=== PATIENT | male | born 1960 | race Caucasian/White ===

== ENCOUNTER 2016-10-29 09:26 | Inpatient (IN) | payer MEDICAID ==
[~2016-10-29] VITALS: Ht 188 cm; Wt 120.3 kg
[~2016-10-29 09:26] MED LIST: ADULT LOW DOSE81 MG; ADVAIR 2501 DISK W/D; ADVAIR 25028 BLISTE1 INH; ALBUTEROL 0.083% NEB; ALPRAZOLAM1 M3 PO; AMBIEN10 MG; AMITRIPTYLINE H25 MG; AMITRIPTYLINE H75 MG; AMLODIPINE BESYL5 MG PO; AMOXICILLIN875 MG; AUGMENTIN 875-11 TAB; BACLOFEN10 M1 PO; BENADRYL25 M3 PO; CARDIZEM CD240 MG; CELEXA40 MG; CLARITIN10 M6 PO; CLEOCIN HCL300 M1 PO; COMBIVENT INH14.7 GM; COUMADIN4 M1 PO; COZAAR50 M1 PO; DEPAKOTE ER500 M1 PO; DETROL LA4 MG; DILTIAZEM; DIOVAN160 M; DURAGESIC1 EA10 TD; ETODOLAC500 MG; FLOMAX0.4 M1 PO; FLOMAX0.4 MG; GLUCAGON EMERGEN1 MG IM; GLUCOSE4 GM PO; GUAIFENESIN400 M1 PO; HUMALOG MIX 75/10 ML; HUMALOG100 UNITS/ SC; HYDROCODONE/A1 UDTA; INDOCIN50 MG; KEFLEX500 M4 PO; LANTUS100 U/ML; LASIX40 MG; LEVEMIR100 UNITS/ SC; LEVOTHYROXINE50 MC3 PO; LIDODERM700 MG TD; LIPITOR40 M1 PO; LIPITOR80 MG; LOPERAMIDE2 M2 PO; LYRICA225 MG; MAGNESIUM400 M2 PO; METFORMIN HCL1000 M2 PO; METOPROLOL TART25 M1 PO; MILK OF MAGNESIA PO; MULTIVITAMINS1 EAC6 PO; NEURONTIN100 M1 PO; NEURONTIN300 M1 PO; NICOTINE; OXYCODONE HCL E10 MG PO; OXYCONTIN10 M2 PO; OXYCONTIN20 M2 PO; OXYCONTIN40 MG; PANTOPRAZOLE SO40 M3 PO; PAXIL20 MG; PERCOCET 5-3251 EACH PO; PROVENTIL HFA6.7 G1 INH; SIMETHICONE80 M3 PO; TRAZODONE HCL50 M1 PO; TUMS200 MG PO; TYLENOL325 M2 PO; VENTOLIN HFA18 G2 PO; VITAMIN C500 M3 PO; VITAMIN D250000 UNI1 PO; VITAMIN D31000 UNI3 PO; VITAMIN D350000 UNI1 PO; XANAX0.25 MG; ZYPREXA10 MG
[2016-10-29] MEDS ORDERED: TYLENOL EXTRA500 M1 PO (10:22)
[2016-10-29] MEDS ORDERED: CYMBALTA30 M1 PO (10:25)
[2016-10-29] MEDS ORDERED: HUMALOG100 UNITS/ (10:27)
[2016-10-29] MEDS ORDERED: LYRICA150 MG/CAP PO (10:29)
[2016-10-29] MEDS ORDERED: MAGNESIUM400 M2 PO (10:29)
[2016-10-29] MEDS ORDERED: SENNA-S TABLET1 EAC3 PO (10:31)
[2016-10-29 13:46] LABS: BASO % 0.2 % (0-2); EOS % 3.4 % (0-7); EOSINOPHIL ABSOLUTE COUNT 0.5 tho/cmm (0.0-0.7); HCT-HEMATOCRIT 44.9 % (36.0-53.5); HGB-HEMOGLOBIN 14.8 gm/dl (13.5-17.0); IMMATURE GRANULOCYTES ABSOLUTE 0.11 tho/cmm (0-0.03); IMMATURE GRANULOCYTES PERCENT 0.8 % (0-0.3); LYMPH % 10.9 % (20-45); LYMPH ABSOLUTE COUNT 1.5 tho/cmm (0.8-4.5); MCH (MEAN CORPUSCULAR HGB) 29.8 pg (28.0-32.0); MCV (MEAN CELL VOLUME) 90.3 fl (82.0-96.0); MEAN PLATELET VOLUME 9.6 cmc (9.4-12.4); MONO % 6.7 % (0-12); MONOCYTE ABSOLUTE COUNT 0.9 tho/cmm (0.0-1.2); NEUTROPHIL ABSOLUTE COUNT 10.9 tho/cmm (1.6-8.0); NEUTROPHIL-AUTOMATED 10.9 tho/cmm (1.6-8.0); PLATELET COUNT 260 tho/cmm (150-450); RED BLOOD COUNT 4.97 mil/cmm (4.40-5.70); RED CELL DISTRIBUTION WIDTH 15.2 % (12.4-16.4); WHITE BLOOD COUNT 13.9 tho/cmm (4.0-10.0)
[2016-10-29 13:49] LABS: INR 2.4 INR (0.9-1.1); PROTHROMBIN TIME 28.6 SECONDS (9.0-13.6)
[2016-10-29 13:56] LABS: ANION GAP 9 mmol/L (0-20); BLOOD UREA NITROGEN 11 mg/dl (6-24); CALCIUM 8.5 mg/dl (8.5-10.5); CARBON DIOXIDE-VENOUS 32 mmol/L (22-32); CHLORIDE 97 mmol/l (96-110); CREATININE 0.86 mg/dl (0.60-1.30); GLUCOSE 124 mg/dL (70-110); POTASSIUM 4.1 mmol/L (3.7-5.1); SODIUM 134 mmol/L (135-145); eGFR VALUE FOR BLACK >90 mL/Min
[2016-10-29 15:26] LABS: ALB/GLOB RATIO 0.6 (0.8-2.0); ALBUMIN 2.6 g/dl (3.5-5.0); ALKALINE PHOSPHATASE 111 U/L (33-138); ALT/SGPT 34 U/L (12-78); ANION GAP 12 mmol/L (0-20); AST/SGOT 22 U/L (10-40); BILIRUBIN,TOTAL 0.3 mg/dl (0.0-1.5); BLOOD UREA NITROGEN 11 mg/dl (6-24); CALCIUM 8.3 mg/dl (8.5-10.5); CARBON DIOXIDE-VENOUS 31 mmol/L (22-32); CHLORIDE 98 mmol/l (96-110); CREATININE 0.93 mg/dl (0.60-1.30); GLUCOSE 118 mg/dL (70-110); MAGNESIUM 1.9 mg/dl (1.8-2.6); PHOSPHOROUS 3.2 mg/dl (2.5-4.9); POTASSIUM 4.2 mmol/L (3.7-5.1); SODIUM 137 mmol/L (135-145); eGFR VALUE FOR BLACK >90 mL/Min
[2016-10-29 15:30] LABS: TSH-THYROID STIMULATING HORM. 1.16 uIU/ml (0.40-3.80)
[2016-10-29] MEDS ORDERED: TYLENOL325 M2 PO (16:16)
[2016-10-29] MEDS ORDERED: BACLOFEN10 M1 PO (16:18)
[2016-10-29] MEDS ORDERED: CALCI-CHEW500 MG PO (16:19)
[2016-10-29] MEDS ORDERED: SIMETHICONE80 M3 PO (16:21)
[2016-10-29] MEDS ORDERED: LOPERAMIDE2 M2 PO (16:21)
[2016-10-29] MEDS ORDERED: MILK OF MAGNESIA PO (16:22)
[2016-10-29] MEDS ORDERED: PERCOCET 5-3251 EACH PO (16:23)
[2016-10-29] MEDS ORDERED: CALMOSEPTINE OI71 G1 TOP (16:25)
[2016-10-29] MEDS ORDERED: GLUCAGEN1 MG/1 ML IM (16:26)
[2016-10-29] MEDS ORDERED: GLUCOSE4 GM PO (16:26)
[2016-10-30 05:57] LABS: BASO % 0.4 % (0-2); EOS % 4.9 % (0-7); EOSINOPHIL ABSOLUTE COUNT 0.5 tho/cmm (0.0-0.7); HCT-HEMATOCRIT 43.2 % (36.0-53.5); HGB-HEMOGLOBIN 13.9 gm/dl (13.5-17.0); IMMATURE GRANULOCYTES ABSOLUTE 0.12 tho/cmm (0-0.03); IMMATURE GRANULOCYTES PERCENT 1.3 % (0-0.3); LYMPH % 17.7 % (20-45); LYMPH ABSOLUTE COUNT 1.7 tho/cmm (0.8-4.5); MCH (MEAN CORPUSCULAR HGB) 29.1 pg (28.0-32.0); MCHC MEAN CORPUSCULAR HGB CONC 32.2 % (32.0-36.0); MCV (MEAN CELL VOLUME) 90.4 fl (82.0-96.0); MEAN PLATELET VOLUME 9.6 cmc (9.4-12.4); NEUTROPHIL ABSOLUTE COUNT 6.1 tho/cmm (1.6-8.0); NEUTROPHIL-AUTOMATED 6.1 tho/cmm (1.6-8.0); NEUTROPHILS % 64.7 % (40-80); PLATELET COUNT 251 tho/cmm (150-450); RED BLOOD COUNT 4.78 mil/cmm (4.40-5.70); RED CELL DISTRIBUTION WIDTH 15.4 % (12.4-16.4); WHITE BLOOD COUNT 9.4 tho/cmm (4.0-10.0)
[2016-10-30 06:00] LABS: INR 1.4 INR (0.9-1.1); PROTHROMBIN TIME 17.1 SECONDS (9.0-13.6)
[2016-10-30 06:07] LABS: ALB/GLOB RATIO 0.6 (0.8-2.0); ALBUMIN 2.3 g/dl (3.5-5.0); ALKALINE PHOSPHATASE 95 U/L (33-138); ALT/SGPT 24 U/L (12-78); ANION GAP 7 mmol/L (0-20); AST/SGOT 20 U/L (10-40); BILIRUBIN,TOTAL 0.3 mg/dl (0.0-1.5); BLOOD UREA NITROGEN 12 mg/dl (6-24); CALCIUM 8.3 mg/dl (8.5-10.5); CARBON DIOXIDE-VENOUS 31 mmol/L (22-32); CHLORIDE 99 mmol/l (96-110); CREATININE 0.93 mg/dl (0.60-1.30); POTASSIUM 4.2 mmol/L (3.7-5.1); SODIUM 133 mmol/L (135-145); eGFR VALUE FOR BLACK >90 mL/Min
[2016-10-30 06:18] LABS: GLUCOSE 180 mg/dL (70-110)
[2016-11-01 05:28] LABS: BASO % 0.5 % (0-2); EOS % 4.1 % (0-7); EOSINOPHIL ABSOLUTE COUNT 0.3 tho/cmm (0.0-0.7); HCT-HEMATOCRIT 41.8 % (36.0-53.5); HGB-HEMOGLOBIN 13.4 gm/dl (13.5-17.0); IMMATURE GRANULOCYTES ABSOLUTE 0.26 tho/cmm (0-0.03); IMMATURE GRANULOCYTES PERCENT 3.3 % (0-0.3); LYMPH % 22.2 % (20-45); LYMPH ABSOLUTE COUNT 1.8 tho/cmm (0.8-4.5); MCH (MEAN CORPUSCULAR HGB) 29.1 pg (28.0-32.0); MCHC MEAN CORPUSCULAR HGB CONC 32.1 % (32.0-36.0); MCV (MEAN CELL VOLUME) 90.7 fl (82.0-96.0); MEAN PLATELET VOLUME 9.4 cmc (9.4-12.4); MONOCYTE ABSOLUTE COUNT 0.6 tho/cmm (0.0-1.2); NEUTROPHIL ABSOLUTE COUNT 4.9 tho/cmm (1.6-8.0); NEUTROPHIL-AUTOMATED 4.9 tho/cmm (1.6-8.0); NEUTROPHILS % 61.9 % (40-80); PLATELET COUNT 247 tho/cmm (150-450); RED BLOOD COUNT 4.61 mil/cmm (4.40-5.70); RED CELL DISTRIBUTION WIDTH 15.2 % (12.4-16.4)
[2016-11-01 05:40] LABS: ANION GAP 12 mmol/L (0-20); BLOOD UREA NITROGEN 12 mg/dl (6-24); CALCIUM 8.2 mg/dl (8.5-10.5); CARBON DIOXIDE-VENOUS 31 mmol/L (22-32); CHLORIDE 98 mmol/l (96-110); POTASSIUM 4.8 mmol/L (3.7-5.1); SODIUM 136 mmol/L (135-145); eGFR VALUE FOR BLACK >90 mL/Min
[2016-11-01 05:50] LABS: GLUCOSE 271 mg/dL (70-110)
[2016-11-04 06:34] LABS: CREATININE 0.73 mg/dl (0.60-1.30); eGFR VALUE FOR BLACK >90 mL/Min
--- NOTE | 2016-11-04 16:12 | NUR ---
11/04: PATIENT REQUESTING TO BE CLEANED UP AFTER A STOOL. BECAME ANGRY DUE TO RATE REVIEWER NOT WASHING THE WAY THAT HE WAS REQUESTING. KEPT SAYING "JUST DO WHATEVER YOU WANT" STATED THAT WE DO NOT TREAT HIM WELL. TOLD HIM THAT WE NEEDED TO BE RESPECTED AND WERE NOT THERE TO LASH OUT ON. CONTINUED TO CLEAN HIM UP AND MAKE BED. TOLD NEXT NURSE THAT HE WANTED TO LEAVE AND HATED THIS PLACE. WILL NOTIFY DR. MENDEZ IN AM.
[2016-11-06 05:04] LABS: HGB-HEMOGLOBIN 14.7 gm/dl (13.5-17.0); PLATELET COUNT 276 tho/cmm (150-450)
[2016-11-06] MEDS ORDERED: CLEOCIN HCL300 M1 PO (14:28)
== END 2016-11-06 17:07 | DRG 264 ==
LOC: WCC 09:26 → BURN 10:52 → ORW 11-05 14:37 → BURN 11-05 15:37
PROVIDERS: Family Medicine; Thoracic Surgery (Cardiothoracic Vascular Surgery); ADMIT Surgery
PROC: 02HV33Z Insertion of Infusion Device into Superior Vena Cava, Percutaneous Approach (ICD-10-PCS; 2016-10-29)
PROC: B548ZZA Ultrasonography of Superior Vena Cava, Guidance (ICD-10-PCS; 2016-10-29)
PROC: 0HRLXK4 Replacement of Left Lower Leg Skin with Nonautologous Tissue Substitute, Partial Thickness, External Approach (ICD-10-PCS; principal; 2016-10-31)
PROC: 0HRNXK4 Replacement of Left Foot Skin with Nonautologous Tissue Substitute, Partial Thickness, External Approach (ICD-10-PCS; 2016-10-31)
PROC: 0HRNX74 Replacement of Left Foot Skin with Autologous Tissue Substitute, Partial Thickness, External Approach (ICD-10-PCS; 2016-11-05)
PROC: 0HRLX74 Replacement of Left Lower Leg Skin with Autologous Tissue Substitute, Partial Thickness, External Approach (ICD-10-PCS; 2016-11-05)
PROC: 0HBJXZZ Excision of Left Upper Leg Skin, External Approach (ICD-10-PCS; 2016-11-05)
DX: E11.52 Type 2 diabetes mellitus with diabetic peripheral angiopathy with gangrene (principal); L03.116 Cellulitis of left lower limb; Z89.611 Acquired absence of right leg above knee; S81.812A Laceration without foreign body, left lower leg, initial encounter; E66.01 Morbid (severe) obesity due to excess calories; L98.411 Non-pressure chronic ulcer of buttock limited to breakdown of skin; Z68.36 Body mass index [BMI] 36.0-36.9, adult; Z72.0 Tobacco use; I10 Essential (primary) hypertension; E78.5 Hyperlipidemia, unspecified; G40.909 Epilepsy, unspecified, not intractable, without status epilepticus; W22.8XXA Striking against or struck by other objects, initial encounter; Y92.129 Unspecified place in nursing home as the place of occurrence of the external cause; Z89.422 Acquired absence of other left toe(s); Z91.19 Patient's noncompliance with other medical treatment and regimen; Z79.51 Long term (current) use of inhaled steroids; Z79.891 Long term (current) use of opiate analgesic; Z79.4 Long term (current) use of insulin; Z79.899 Other long term (current) drug therapy; Z99.3 Dependence on wheelchair
CPT/HCPCS: C1751; G0463; J0171; J0692; J1650; J1815; J2270; J3010; J3370; J7050; Q4100